=== PATIENT | male | born 1960 | race Hispanic/Latino ===

== ENCOUNTER → 2019-12-23 | Outpatient (CLI) | payer OTHER | END | disposition home or self-care (01) | LOC: RAH 09:49 | PROVIDERS: ATTEND Internal Medicine Cardiovascular Disease | DX: Z13.6 Encounter for screening for cardiovascular disorders (principal); I51.7 Cardiomegaly | CPT/HCPCS: 75571 ==

== ENCOUNTER → 2020-03-02 | Outpatient (CLI) | payer OTHER | END | disposition home or self-care (01) | LOC: SHCH 13:22 | PROVIDERS: ATTEND Internal Medicine Cardiovascular Disease | DX: I67.9 Cerebrovascular disease, unspecified (principal); G45.9 Transient cerebral ischemic attack, unspecified; E78.5 Hyperlipidemia, unspecified | CPT/HCPCS: 93880 ==